=== PATIENT | female | born 1990 | race Caucasian/White ===

== ENCOUNTER 2018-07-21 17:00 | Inpatient (IN) | payer OTHER ==
[~2018-07-21] VITALS: Ht 160 cm; Wt 57.7 kg
[2018-07-21 17:48] LABS: UA SPECIFIC GRAVITY 1.025 (1.005-1.035); microscopic required? YES; urine erythrocyte 1+ (NEGATIVE)
[2018-07-21 17:49] LABS: BASOPHIL % 0.7 % (0-2); PLATELET COUNT 312 x10^3mcL (130-400)
[2018-07-21 17:50] LABS: RED CELL DISTRIBUTION WIDTH 15.8 % (11.5-14.5)
[2018-07-21 18:13] LABS: ALBUMIN 4.3 g/dL (3.4-5.0); ALKALINE PHOSPHATASE 66 U/L (46-116); ALT/SGPT 24 U/L (14-59); AST/SGOT 19 U/L (15-37); BILIRUBIN TOTAL 0.47 mg/dL (0.20-1.00); CALCIUM 8.7 mg/dL (8.5-10.1); CARBON DIOXIDE 25.1 mmol/L (21-32); CHLORIDE SERUM 99 mmol/L (98-107); CREATININE SERUM 0.8 mg/dL (0.6-1.0); GFR1 > 60 mL/min; GLUCOSE SERUM 106 mg/dL (74-106); POTASSIUM SERUM 3.8 mmol/L (3.5-5.1); SODIUM SERUM 132 mmol/L (136-145); TOTAL PROTEIN, SERUM 9.2 g/dL (6.4-8.2)
[2018-07-21 21:02] LABS: BASOPHIL % 0.4 % (0-2); PLATELET COUNT 214 x10^3mcL (130-400)
[2018-07-21 23:13] VITALS: BP 122/70
[2018-07-22 05:07] VITALS: BP 97/60
[2018-07-22 07:13] LABS: CALCIUM 8.1 mg/dL (8.5-10.1); CARBON DIOXIDE 23.7 mmol/L (21-32); CHLORIDE SERUM 106 mmol/L (98-107); CREATININE SERUM 0.8 mg/dL (0.6-1.0); GFR1 > 60 mL/min; GLUCOSE SERUM 86 mg/dL (74-106); MAGNESIUM 2.1 mg/dL (1.8-2.4); POTASSIUM SERUM 3.8 mmol/L (3.5-5.1); SODIUM SERUM 138 mmol/L (136-145)
[2018-07-22 07:30] LABS: BASOPHIL % 0.2 % (0-2); PLATELET COUNT 198 x10^3mcL (130-400)
[2018-07-22 07:59] VITALS: BP 110/65
[2018-07-22 09:11] VITALS: Ht 160 cm; Wt 57.7 kg
[2018-07-22 11:37] VITALS: BP 101/70
[2018-07-22 15:14] VITALS: BP 93/54
[2018-07-22 19:30] VITALS: BP 108/64
[2018-07-22 23:21] VITALS: BP 101/55
[2018-07-23 03:03] VITALS: BP 101/50
[2018-07-23 04:51] LABS: BASOPHIL % 0.4 % (0-2); PLATELET COUNT 189 x10^3mcL (130-400)
[2018-07-23 04:58] LABS: RED CELL DISTRIBUTION WIDTH 16.1 % (11.5-14.5)
[2018-07-23 05:01] LABS: CHLORIDE SERUM 106 mmol/L (98-107); CREATININE SERUM 0.7 mg/dL (0.6-1.0); GFR1 > 60 mL/min; GLUCOSE SERUM 89 mg/dL (74-106); MAGNESIUM 1.9 mg/dL (1.8-2.4); POTASSIUM SERUM 3.8 mmol/L (3.5-5.1); SODIUM SERUM 138 mmol/L (136-145)
[2018-07-23 07:51] VITALS: BP 110/62
[2018-07-23 12:05] VITALS: BP 102/65
[2018-07-23 12:14] VITALS: BP 102/65
[2018-07-23] MEDS ORDERED: ACETAMINOPHEN-H1 TA1 PO (14:16)
[2018-07-23 14:30] VITALS: BP 102/65
== END 2018-07-23 14:50 | disposition home or self-care (01) | DRG 532 ==
LOC: ED 17:00 → IC 22:11 → MU 07-23 12:02
PROVIDERS: Emergency Medicine; Internal Medicine Pulmonary Disease
PROC: 30233N1 Transfusion of Nonautologous Red Blood Cells into Peripheral Vein, Percutaneous Approach (ICD-10-PCS; principal; 2018-07-22)
DX: N83.201 Unspecified ovarian cyst, right side (principal); D62 Acute posthemorrhagic anemia
CPT/HCPCS: J1885; J2405; J7030; J7050; P9016; Q9967